=== PATIENT | female | born 1985 | race Caucasian/White ===

== ENCOUNTER → 2024-01-27 | Outpatient (CLI) | payer OTHER | LOC: M WHC 10:37 | PROVIDERS: ATTEND Family Medicine | DX: N63.0 Unspecified lump in unspecified breast (principal); R92.333 Mammographic heterogeneous density, bilateral breasts; N60.11 Diffuse cystic mastopathy of right breast; N60.12 Diffuse cystic mastopathy of left breast | CPT/HCPCS: 76641; 77066; G0279 ==

== ENCOUNTER 2024-02-09 17:43 | Emergency (ER) | payer OTHER ==
[~2024-02-09] VITALS: Ht 172.7 cm; Wt 61.4 kg
[2024-02-09] MEDS ORDERED: AMOX875T2 (17:55)
[2024-02-09] MEDS: ACETAMINOPHEN 325 MG TAB PO ONE (18:10)
[2024-02-09] MEDS: DOXYCYCLINE HYCLATE 100MG TABLET PO ONE (19:05)
[2024-02-09] MEDS: ALBUTEROL 90 MCG/ACT 8GM HFA INHALER INH ONE (19:09)
[2024-02-09 19:34] LABS: BASO % 0.3 % (0.0-1.0); EOS # 0.1 10^3/uL (0.0-0.5); EOS % 0.8 % (0.0-3.0); HEMATOCRIT 33.9 % (36.0-47.0); HEMOGLOBIN 11.2 g/dl (12.0-15.5); LYMPH # 0.9 10^3/uL (1.5-5.0); LYMPH % 14.8 % (24.0-44.0); MEAN CORPUSCULAR HEMOGLOBIN 28.2 pg (27.0-33.0); MEAN CORPUSCULAR VOLUME 85.4 fl (80.0-96.0); MONO # 0.6 10^3/uL (0.0-0.8); MONO % 10.1 % (2.0-8.0); NEUTROPHILS # 4.5 10^3/uL (1.5-8.5); NEUTROPHILS % 73.7 % (36.0-66.0); PLATELET COUNT, AUTOMATED 189 10^3/uL (150-450); RED BLOOD COUNT 3.97 10^6/uL (4.00-5.40); WHITE BLOOD COUNT 6.1 10^3/uL (4.0-10.0)
[2024-02-09 19:56] LABS: BLOOD UREA NITROGEN 7 MG/DL (9-23); CALCIUM LEVEL 9.1 MG/DL (8.5-10.1); CARBON DIOXIDE LEVEL 26 MMOL/L (20-31); CHLORIDE LEVEL 103 MMOL/L (98-107); CREATININE FOR GFR 0.78 MG/DL (0.55-1.30); GLOMERULAR FILTRATION RATE > 60.0 (>60); GLUCOSE, FASTING 92 MG/DL (60-100); POTASSIUM SERUM 3.9 MMOL/L (3.5-5.1); SODIUM LEVEL 136 MMOL/L (136-145)
[2024-02-09] MEDS ORDERED: VENTAER INH (20:30)
[2024-02-09] MEDS ORDERED: DOXY-441 PO (20:30)
[2024-02-09 20:58] VITALS: BP 121/64; TEMP 97.2; O2SAT 98
== END 2024-02-09 20:58 | disposition home or self-care (01) ==
LOC: M ED 17:43
DX: J18.1 Lobar pneumonia, unspecified organism (principal); Z87.01 Personal history of pneumonia (recurrent); Z79.01 Long term (current) use of anticoagulants

== ENCOUNTER → 2024-03-05 | Outpatient (CLI) | payer OTHER ==
[~2024-03-05] MED LIST: AMOX875T2; DOXY-441 PO; VENTAER INH
== END ==
LOC: M PLAIMG 08:31
PROVIDERS: ATTEND Nurse Practitioner Family
DX: R91.8 Other nonspecific abnormal finding of lung field (principal)